=== PATIENT | male | born 1955 | race Caucasian/White ===

== ENCOUNTER → 2016-03-25 | Outpatient (CLI) | payer MEDICARE | END | disposition home or self-care (01) | LOC: YCHH 18:22 | PROVIDERS: ATTEND Family Medicine | DX: E29.1 Testicular hypofunction (principal) ==

== ENCOUNTER → 2016-05-14 | Outpatient (CLI) | payer MEDICARE | LOC: GMAM 16:36 | PROVIDERS: ATTEND Family Medicine | DX: I10 Essential (primary) hypertension (principal) ==

== ENCOUNTER → 2016-06-17 | Outpatient (CLI) | payer MEDICARE | END | disposition home or self-care (01) | LOC: YCHH 14:08 | PROVIDERS: ATTEND Family Medicine | DX: D64.9 Anemia, unspecified (principal) ==

== ENCOUNTER → 2016-10-14 | Outpatient (CLI) | payer MEDICARE | END | disposition home or self-care (01) | LOC: YCHH 11:25 | PROVIDERS: ATTEND Family Medicine | DX: E34.50 Androgen insensitivity syndrome, unspecified (principal) ==

== ENCOUNTER → 2016-11-13 | Outpatient (CLI) | payer MEDICARE | LOC: GMAM 15:03 | PROVIDERS: ATTEND Family Medicine | DX: E29.1 Testicular hypofunction (principal); Z12.5 Encounter for screening for malignant neoplasm of prostate | CPT/HCPCS: 84403; G0103 ==

== ENCOUNTER 2017-03-03 08:00 | Day surgery (SDC) | payer MEDICARE ==
[~2017-03-03 08:00] MED LIST: PROPARACAINE 0.5% OPHTH SOL 15 ML BTTL ONE; TROP 1%/CYCLOPEN 1%/PHENYL 2% DROPS ONE
[2017-03-03] MEDS ORDERED: MIDAZOLAM INJ 2 MG/2 ML VIAL ONE (10:00)
[2017-03-03] MEDS: TOBRAMYCIN SULF 0.3 % OPHT SOL 1 DROP RIGHT_EYE ONE ×2 (10:28→11:29)
[2017-03-03] MEDS ORDERED: LEVALBUTEROL NEBS 1.25 MG/3 ML VIAL NEB ONE (10:50)
[2017-03-03] MEDS ORDERED: PROPARACAINE 0.5% OPHTH SOL 15 ML BTTL RIGHT_EYE ONE (11:16)
[2017-03-03] MEDS ORDERED: LIDOCAINE 1% PF 2 ML AMP INJ ONE (11:29)
[2017-03-03] MEDS ORDERED: DEXAMETHASONE 0.1% OPHTH SOL 1 DROP RIGHT_EYE ONE ×2 (11:29→11:35)
[2017-03-03] MEDS ORDERED: BRIMONIDINE 0.2% OPHTH DROPS RIGHT_EYE ONE ×2 (11:30→11:35)
[2017-03-03] MEDS ORDERED: TOBRAMYCIN SULF 0.3 % OPHT SOL 1 DROP RIGHT_EYE ONE (11:35)
[2017-03-04 10:00] VITALS: BP 124/78; TEMP 98.9; O2SAT 93
== END 2017-03-03 12:15 | disposition home or self-care (01) ==
LOC: AMB 08:00
PROVIDERS: ATTEND Ophthalmology
DX: H25.11 Age-related nuclear cataract, right eye (principal); I10 Essential (primary) hypertension; E11.36 Type 2 diabetes mellitus with diabetic cataract; I25.10 Atherosclerotic heart disease of native coronary artery without angina pectoris; E66.9 Obesity, unspecified; J44.9 Chronic obstructive pulmonary disease, unspecified; Z87.891 Personal history of nicotine dependence; Z88.8 Allergy status to other drugs, medicaments and biological substances; Z79.82 Long term (current) use of aspirin; Z79.4 Long term (current) use of insulin; Z79.899 Other long term (current) drug therapy
CPT/HCPCS: 00142; 36416; 66984; 82948; 94640; J2250; J7614

== ENCOUNTER → 2017-04-30 | Outpatient (CLI) | payer MEDICARE ==
--- NOTE | 2017-04-30 16:03 | US ---
EXAM DESCRIPTION: Venous,Lower Extremity LT: ULTRASOUND. CLINICAL HISTORY: PAIN IN LT LEG COMPARISON: None Available. TECHNIQUE: Two -dimensional and doppler sonographic evaluation of the deep venous system of the left lower extremity. FINDINGS: Doppler evaluation shows normal color flow and normal phasicity and augmentation of the left common femoral vein, femoral vein, popliteal vein, greater saphenous vein, peroneal, and posterior tibial vein. The left lower extremity deep veins showed normal occlusion with transducer pressure. Two-dimensional survey showed no echogenic thrombus within these veins. IMPRESSION: 1. Duplex ultrasound evaluation of the left lower extremity deep venous system showing no evidence of thrombosis or embolism. Electronically signed by: Michael Rice MD 04/30/2017 4:02 PM CDT
== END ==
LOC: US 14:37
PROVIDERS: ATTEND Nurse Practitioner Family
DX: M79.662 Pain in left lower leg (principal)

== ENCOUNTER → 2017-07-21 | Outpatient (CLI) | payer MEDICARE | LOC: YCHH 09:01 | PROVIDERS: ATTEND Family Medicine | DX: E11.40 Type 2 diabetes mellitus with diabetic neuropathy, unspecified (principal); E34.50 Androgen insensitivity syndrome, unspecified; D64.9 Anemia, unspecified; E78.5 Hyperlipidemia, unspecified; N18.6 End stage renal disease; J44.9 Chronic obstructive pulmonary disease, unspecified ==

== ENCOUNTER → 2017-11-10 | Outpatient (CLI) | payer MEDICARE | LOC: YCHH 13:06 | PROVIDERS: ATTEND Family Medicine | DX: D64.9 Anemia, unspecified (principal) ==

== ENCOUNTER → 2018-02-16 | Outpatient (CLI) | payer MEDICARE | LOC: YCHH 12:51 | PROVIDERS: ATTEND Family Medicine | DX: E34.50 Androgen insensitivity syndrome, unspecified (principal) ==

== ENCOUNTER → 2018-03-25 | Outpatient (CLI) | payer MEDICARE ==
--- NOTE | 2018-03-26 17:40 | CT ---
Procedure: CT LUNG SCREENING Exam Date: 03/25/2018. Ordering Provider: Gutierrez Singh Clinical Indication: HX OF TOBACCO ABUSE This patient meets eligibility criteria for low-dose CT lung cancer screening. Comparison: Chest CT scan without contrast 01/06/2015. Technique: Using a multislice scanner, sequential helical axial imaging was obtained in the thorax, 2.5 mm thickness, 2.5 mm separation, from the level of the thoracic inlet through the lung bases without IV contrast. A low dose protocol was utilized: CTDI: 2.93 mGy. 120. kVp. 45 mA. DLP 108.55 mGy centimeters. 2D sagittal and coronal reconstructed images, 6.0 mm thickness, were obtained. This exam was performed according to our departmental dose optimization program which includes use of automated exposure control, adjustment of the mA and/or kV according to patient size and/or use of iterative reconstruction technique. Nodule measurements under 10 mm are given as mean value of 3 axes diameters. FINDINGS: Lungs and large airways: Minimal bilateral parenchymal density with small blebs in a centrilobular distribution more prevalent in the upper lung serrano than the lower lung serrano. Minimal thickening of the bilateral fissures. Minimal scarring in the inferior right middle lobe. Pleura and space: Small focal calcification in the anterior lateral left pleura at the midlung level. Bilateral thickening posteriorly more right than left. 11 mm groundglass nodule central right lower lobe, not seen on the prior study, axial series 2, image 85. No calcification. No consolidation or solid nodules were seen.. Mediastinum and nahid: evaluation limited by low dose technique and lack of IV contrast. Numerous lymph nodes are seen in the mid and upper mediastinum with no significant changes the prior study. Heart and great vessels: Atherosclerotic calcifications in the aortic arch with stent in the proximal left subclavian artery. Atherosclerotic calcifications in the coronary arteries and aorta. Chest wall, lower neck, axillae: Evaluation also limited by same factors as described above. Minimal edema in the chest wall and distention of some of the chest wall veins. No enlarged lymph nodes. Upper abdomen: Ascites. No free air. Limited visualization due to the ascites. Osseous structures: Evaluation limited by low dose MIP technique. Minimal spondylosis. Minimal arthrosis in the bilateral sternoclavicular joints. IMPRESSION: 1. 11 mm groundglass nodule central right lower not seen on the prior study. No abnormal solid or semisolid nodules. [facility] Best Practice recommendations:. Please see below for Lung RADS category and FOLLOW-UP.* *Lung RADS category CATEGORY 2S - Nodules with a very low likelihood (less than 1%) of becoming a clinically active cancer due to size or lack of growth. Nodules: Solid or part solid nodule(s) less than 6mm, new solid nodule less than 4mm. Ground glass nodule(s) less than 20mm or unchanged or slow growing ground glass nodule 20mm or greater. Cat 3 or 4 nodule unchanged for 3 or more months. FOLLOW-UP: Continue annual screening with a Low Dose Chest CT in 12 months for re-evaluation. 2. Lung RADS Modifier S - Clinically Significant or Potentially Clinically Significant Findings (non lung cancer). Abdominal ascites. Chest wall anasarca. Correlate with clinical history and consider abdominal ultrasound. Electronically signed by: Michael Rice MD 03/26/2018 5:38 PM [facility]
== END ==
LOC: CT 13:00
PROVIDERS: ATTEND Family Medicine
DX: Z87.891 Personal history of nicotine dependence (principal); R91.1 Solitary pulmonary nodule

== ENCOUNTER → 2018-03-30 | Outpatient (CLI) | payer MEDICARE | LOC: YCHH 08:35 | PROVIDERS: ATTEND Family Medicine | DX: E11.40 Type 2 diabetes mellitus with diabetic neuropathy, unspecified (principal); N18.6 End stage renal disease; D64.9 Anemia, unspecified; E78.5 Hyperlipidemia, unspecified; I10 Essential (primary) hypertension; N40.0 Benign prostatic hyperplasia without lower urinary tract symptoms ==

== ENCOUNTER → 2018-04-12 | Outpatient (CLI) | payer MEDICARE | LOC: SL 20:23 | PROVIDERS: ATTEND Internal Medicine | DX: G47.33 Obstructive sleep apnea (adult) (pediatric) (principal); J44.9 Chronic obstructive pulmonary disease, unspecified ==

== ENCOUNTER → 2018-09-28 | Outpatient (CLI) | payer MEDICARE | LOC: YCHH 08:20 | PROVIDERS: ATTEND Family Medicine | DX: E11.40 Type 2 diabetes mellitus with diabetic neuropathy, unspecified (principal); N18.6 End stage renal disease; D64.9 Anemia, unspecified; E34.50 Androgen insensitivity syndrome, unspecified; E78.5 Hyperlipidemia, unspecified ==

== ENCOUNTER → 2018-10-14 | Outpatient (CLI) | payer MEDICARE | LOC: ECHO 13:08 | PROVIDERS: ATTEND Family Medicine | DX: I48.91 Unspecified atrial fibrillation (principal) ==

== ENCOUNTER 2018-10-22 07:23 | Emergency (ER) | payer MEDICARE ==
[2018-10-22] MEDS ORDERED: ACETAMINOPHEN 500 MG TAB PO ONE (07:34)
[2018-10-22] MEDS ORDERED: SODIUM CHLORIDE 0.9% (FLUSH) 10 ML SYG IV PRN (07:34)
--- NOTE | 2018-10-22 07:40 | ED.PDOC ---
History of Present Illness - General Chief Complaint: Neuro Symptoms/Deficits Stated Complaint: Hypotensive, lightheaded, AMS Time Seen by Provider: 10/22/18 07:33 Source: patient, family - History of Present Illness Initial Comments: Patient is a 63M with PMH significant for DM, ESRD on TRS HD, prior stroke on eliquis, atrial fibrillation, COPD, CHF presents to the ED from dialysis center for generalized weakness, altered mental status. Patient's states that he woke this morning "Feelin bad." He complained of worsening chronic back pain, lack of appetite. Per report from dialysis center he had difficulty walking due to generalized weakness. He received one hour of dialysis which was terminated due to hypotension it is unclear what his blood pressure was at HD center but it improved at the time of EMS arrival. Upon arrival the patient's states that he is more sluggish to respond than usual and that he is more confused than baseline. He is noted to have fever to 100.4. He did take his midodrine this morning. No other complaints at this time. Allergies/Adverse Reactions: Allergies Codeine Allergy (Unknown, Verified 10/22/18 07:54) Rash Hydrocodone Allergy (Verified 10/22/18 07:54) Rash Home Medications: Ambulatory Orders Albuterol Sulfate Nebs [Proventil Nebs] 2.5 mg INH QID #0 vial 09/11/12 Amlodipine Besylate 10 mg PO HS #0 09/11/12 Ascorbic Acid [Vitamin C] 100 mg PO DAILY #0 09/11/12 Aspirin [Baby Aspirin] 81 mg PO DAILY #0 09/11/12 Cholecalciferol [Vitamin D3] 600 unit PO DAILY #0 09/11/12 Citalopram Hydrobromide [Celexa] 20 mg PO DAILY #0 09/11/12 Coenzyme Q10 (Ubidecarenone) [Co Q-10] 100 mg PO DAILY #0 09/11/12 Calcium Citrate [Ward-Citrate] 150 mg PO BID 05/17/15 Insulin Aspart [Novolog] 100 unit SC AC 05/17/15 Insulin Glargine [Lantus Solostar] 32 unit SC BEDTIME 05/17/15 Losartan Potassium 50 mg PO BID 05/17/15 Methadone HCl [Methadone] 10 mg PO TID PRN 05/17/15 Leon-3 Fatty Acids [Fish Oil 1000 mg] 1 cap PO DAILY 05/17/15 Pravastatin Sodium 40 mg PO BEDTIME 05/17/15 Vit W/ Ferrous Fumara [Pnv Folic Acid + Iron Mul] 1 tab PO DAILY #30 tab 05/20/15 Furosemide Tab [Lasix Tab] 80 mg PO AM 06/27/15 Furosemide [Lasix] 40 mg PO .QEVENING 06/27/15 hydrALAZINE HCl [(None)] 50 mg PO TID 06/27/15 Review of Systems - Review of Systems Constitutional: States: no symptoms reported, weakness EENTM: States: no symptoms reported Respiratory: States: no symptoms reported Cardiology: Denies: chest pain Gastrointestinal/Abdominal: Denies: abdominal pain, diarrhea, nausea, vomiting Genitourinary: States: no symptoms reported - anuric Musculoskeletal: Denies: joint pain, joint swelling Skin: Denies: rash Neurological: States: weakness - generalized. Denies: headache, numbness Endocrine: States: no symptoms reported Hematologic/Lymphatic: States: no symptoms reported All other Systems: No Change from Baseline Past Medical History (General) - Patient Medical History Hx Seizures: No Hx Stroke: Yes - 2013 Hx Asthma: No Hx of COPD: Yes Hx Cardiac Disorders: Yes - pulm edema, CAD, PVD stints in legs and L arm Hx Congestive Heart Failure: Yes Hx Pacemaker: No Hx Hypertension: Yes Hx Diabetes: Yes Hx MRSA: No - Vaccination History Hx Influenza Vaccination: Yes - 2014 Hx Pneumococcal Vaccination: Yes - 2014 - Social History Hx Tobacco Use: Yes - Quit 08/2012 Hx Alcohol Use: No Hx Substance Use: No Hx Physical Abuse: No Hx Emotional Abuse: No Family Medical History - Family History Father Family History: Unknown Living Status: Hx Cardiac Disease: Yes Physical Exam - Physical Exam General Appearance: Lethargic, Obese, Well Developed, Well Nourished Eye Exam: bilateral normal Ears, Nose, Throat: hearing grossly normal Neck: non-tender, full range of motion Respiratory: accessory muscle use, wheezing - occasional, scattered Cardiovascular/Chest: regular rate, rhythm, no edema, no murmur Gastrointestinal/Abdominal: non tender, distended Extremity: normal range of motion, non-tender, no pedal edema Neurologic: general office assistant II-XII nml as tested, motor weakness - drift noted to LLE 4/5 Skin Exam: normal color, warm/dry Progress - Progress Progress: 10/22/18 08:09 Discussed with radiology, patient has appearance of subacute right frontal lobe infarct. 10/22/18 08:27 Patient reassessed, he is awake/alert but still sluggish to respond. States that he has been having some left leg weakness for "a while" but unable to quantify. 10/22/18 09:[address] Diaz, accepted for transfer to [facility] for sepsis, subacute stroke 10/22/18 09:45 Patient reassessed per sepsis guidelines. Heart and lungs are clear, capillary refill is < 2 seconds. 2+ peripheral pulses. Skin is warm and dry. Moderate persistent hypotension, will add levophed. Vital Signs - 24 hr 10/22/18 10/22/18 10/22/18 07:25 07:34 08:00 Temperature 100.4 F H 100.4 F H Pulse Rate [R 101 H 101 H 97 H finger] Respiratory 20 20 20 Rate Blood Pressure 92/66 85/59 [R brachial] O2 Sat by Pulse 91 L 96 Oximetry 10/22/18 10/22/18 10/22/18 08:46 09:00 10:00 Temperature Pulse Rate [R 94 H 89 finger] Respiratory 20 20 Rate Blood Pressure 86/53 83/49 [R brachial] O2 Sat by Pulse 94 L 92 L 91 L Oximetry 10/22/18 10:35 Temperature 99.5 F Pulse Rate [R 89 finger] Respiratory 20 Rate Blood Pressure 83/60 [R brachial] O2 Sat by Pulse 88 L Oximetry MDM Patient presents to the ED from HD with generalized weakness, low blood pressure. Workup as below. The patient had normal blood pressure at the time of EMS arrival but is noted to have SBP in 80s while in the ED. He responded temporarily to 500cc fluid bolus, did not get 30cc/kg fluid bolus due to ESRD and concern for volume overload. He was started on low-dose levophed for blood pressure support. He was febrile on arrival with mild leukocytosis, normal lactic acid. Blood cultures were sent and he was started on empiric antibiotics. He was also found to have subacute infarct. Will transfer to [facility] for higher level of care. - Results/Orders Results/Orders: 10/22/18 07:34 Telemetry .ONCE EKG Stat Pulse Ox Stat Pulse Oximetry Assessment DAILY 10/22/18 08:26 BLOOD CULTURE Stat Laboratory Results - last 24 hr 10/22/18 10/22/18 10/22/18 08:14 08:26 08:26 WBC 11.7 H RBC 3.65 L Hgb 11.0 L Hct 35.1 L MCV 96.1 H MCH 30.1 MCHC 31.3 L RDW 18.0 H Plt Count 206 MPV 8.4 Absolute Neuts (auto) 11.40 H Absolute Lymphs (auto) 0.10 L Absolute Monos (auto) 0.20 Absolute Eos (auto) 0.00 Absolute Basos (auto) 0.00 Neutrophils % 97.0 H Lymphocytes % 0.7 L Monocytes % 2.0 Eosinophils % 0.0 L Basophils % 0.3 PT INR PTT (SP) pCO2 44 pO2 184 H* HCO3 30.9 ABG pH 7.460 H ABG O2 Saturation 99.8 H ABG Base Excess 6.8 ABG Deoxyhemoglobin 0.2 Oxyhemoglobin % 96.9 Carboxyhemoglobin % 0.7 Methemoglobin % Sat 2.2 H Calc Total Hemoglobin 10.3 L Sodium 140 Potassium 3.7 Chloride 93 L Carbon Dioxide 30 Anion Gap 20.7 H BUN 47 H Creatinine 4.18 H BUN/Creatinine Ratio 11.2 Random Glucose 75 Serum Osmolality 290.4 Lactic Acid Calcium 8.3 L Total Bilirubin 0.9 AST 24 ALT 17 Alkaline Phosphatase 68 Creatine Kinase 89 CK-MB (CK-2) 8.1 H* CK-MB (CK-2) % Not Reportable Troponin I 0.11 H* Serum Total Protein 8.0 Albumin 3.3 Globulin 4.7 H Albumin/Globulin Ratio 0.7 L 10/22/18 10/22/18 08:26 08:26 WBC RBC Hgb Hct MCV MCH MCHC RDW Plt Count MPV Absolute Neuts (auto) Absolute Lymphs (auto) Absolute Monos (auto) Absolute Eos (auto) Absolute Basos (auto) Neutrophils % Lymphocytes % Monocytes % Eosinophils % Basophils % PT 12.4 H INR 1.24 H PTT (SP) 28.9 pCO2 pO2 HCO3 ABG pH ABG O2 Saturation ABG Base Excess ABG Deoxyhemoglobin Oxyhemoglobin % Carboxyhemoglobin % Methemoglobin % Sat Calc Total Hemoglobin Sodium Potassium Chloride Carbon Dioxide Anion Gap BUN Creatinine BUN/Creatinine Ratio Random Glucose Serum Osmolality Lactic Acid 1.4 Calcium Total Bilirubin AST ALT Alkaline Phosphatase Creatine Kinase CK-MB (CK-2) CK-MB (CK-2) % Troponin I Serum Total Protein Albumin Globulin Albumin/Globulin Ratio - EKG/XRAY/CT EKG: Sinus, RBBB, nonspecific ST T wave Chg Comments: 08 sinus rhythm, RBBB, non-specific twave changes, no STEMI Departure - Departure Clinical Impression: End stage renal disease Sepsis Qualifiers: Sepsis type: sepsis due to unspecified organism Qualified Code(s): A41.9 - Sepsis, unspecified organism Stroke (cerebrum) Qualifiers: CVA mechanism: thrombosis Precerebral and cerebral artery: unspecified precerebral artery Qualified Code(s): I63.00 - Cerebral infarction due to thrombosis of unspecified precerebral artery Time of Disposition: :10 Disposition: Transfer to Hospital Condition: Fair Departure Forms: ED Discharge - Pt. Copy, Patient Portal Self Enrollment Referrals: Rishi Pickering MD [Primary Care Provider] - 1-2 Weeks Home Medications: Ambulatory Orders Albuterol Sulfate Nebs [Proventil Nebs] 2.5 mg INH QID #0 vial 09/11/12 Amlodipine Besylate 10 mg PO HS #0 09/11/12 Ascorbic Acid [Vitamin C] 100 mg PO DAILY #0 09/11/12 Aspirin [Baby Aspirin] 81 mg PO DAILY #0 09/11/12 Cholecalciferol [Vitamin D3] 600 unit PO DAILY #0 09/11/12 Citalopram Hydrobromide [Celexa] 20 mg PO DAILY #0 09/11/12 Coenzyme Q10 (Ubidecarenone) [Co Q-10] 100 mg PO DAILY #0 09/11/12 Calcium Citrate [Ward-Citrate] 150 mg PO BID 05/17/15 Insulin Aspart [Novolog] 100 unit SC AC 05/17/15 Insulin Glargine [Lantus Solostar] 32 unit SC BEDTIME 05/17/15 Losartan Potassium 50 mg PO BID 05/17/15 Methadone HCl [Methadone] 10 mg PO TID PRN 05/17/15 Leon-3 Fatty Acids [Fish Oil 1000 mg] 1 cap PO DAILY 05/17/15 Pravastatin Sodium 40 mg PO BEDTIME 05/17/15 Vit W/ Ferrous Fumara [Pnv Folic Acid + Iron Mul] 1 tab PO DAILY #30 tab 05/20/15 Furosemide Tab [Lasix Tab] 80 mg PO AM 06/27/15 Furosemide [Lasix] 40 mg PO .QEVENING 06/27/15 hydrALAZINE HCl [(None)] 50 mg PO TID 06/27/15 Comments: Dae Larose MD Emergency Medicine Physician Number [id number] Critical Care Note - Critical Care Note Total Time (mins): 35 Comments: 35 minutes of critical care time including chart review, ordering/interpretation of labs and imaging, management of sepsis, management of shock Transfer to Outside Facility - Transfer Information Accepting Provider:: Emily Accepting Facility: [facility] Reason for Transfer: required specialist not available
--- NOTE | 2018-10-22 08:11 | CT ---
PROVIDED CLINICAL HISTORY/REASON FOR EXAM: altered mental TECHNIQUE: Volumetric CT data of the brain was obtained without intravenous contrast. This exam was performed according to our departmental dose-optimization program, which includes automated exposure control, adjustment of the mA and/or kV according to patient size and/or use of iterative reconstruction technique. COMPARISON: February 19, 2013 FINDINGS: The ventricles and sulci are normal, without hydrocephalus or significant atrophy. Septum pellucidum and third ventricle are midline. Age-indeterminate, but interval right frontal lobe infarct. No associated hemorrhage or mass effect. Infarcted area measures approximately 5.3 x 2.4 x 3.2 cm. No acute hemorrhage is present. No mass or mass effect is present. The calvaria and soft tissues are unremarkable. The visualized paranasal sinuses are unremarkable. IMPRESSION: Age-indeterminate, but interval right frontal lobe infarct without hemorrhage or mass effect. Recommend MRI for further evaluation. Findings discussed with Dr. Larose at 8:08 AM 10/22/2018 Electronically signed by: Blaise Crum MD 10/22/2018 8:09 AM CDT
[2018-10-22] MEDS ORDERED: SODIUM CHLORIDE 0.9% 500ML 500 ML IVS ONE (08:22)
--- NOTE | 2018-10-22 08:39 | RAD ---
EXAM DESCRIPTION: Chest,1 View CLINICAL HISTORY: sepsis COMPARISON: May 20, 2015 IMPRESSION: Single AP portable upright view of the chest shows enlargement of cardiac silhouette without pulmonary vascular congestion increased from previous exam which could represent pericardial effusion versus worsening cardiomegaly. Lungs are normally aerated without acute appearing infiltrate or consolidation. No pleural effusion or pneumothorax. Electronically signed by: Mehdi Ruiz MD 10/22/2018 8:37 AM CDT
[2018-10-22] MEDS ORDERED: VANCOMYCIN HCL INJ 1,000 MG in SODIUM CHLORIDE 0.9% 250ML 250 ML IVPB ONE (08:53)
[2018-10-22] MEDS ORDERED: CEFEPIME 1 GM in SODIUM CHLORIDE 0.9% 50ML 50 ML IVPB ONE (08:54)
[2018-10-22] MEDS ORDERED: CEFEPIME 2 GM VIAL ONE (09:00)
[2018-10-22] MEDS ORDERED: SODIUM CHLORIDE 0.9% 50ML 50 ML ONE (09:00)
[2018-10-22] MEDS ORDERED: VANCOMYCIN HCL INJ 1,000 MG VIAL IVPB ONE (09:41)
[2018-10-22] MEDS ORDERED: SODIUM CHLORIDE 0.9% 250ML 250 ML ONE (09:41)
[2018-10-22] MEDS ORDERED: NOREPINEPHRINE BITARTRATE 4 MG/4 ML VIAL IVPB ONE (10:17)
[2018-10-22] MEDS ORDERED: DEXTROSE 5% 250ML 250 ML ONE (10:18)
[2018-10-22] MEDS ORDERED: NOREPINEPHRINE BITARTRATE 4 MG in DEXTROSE 5% 250ML 250 ML IVPB SCH (10:30)
[2018-10-22 10:47] VITALS: BP 83/60; TEMP 99.5; O2SAT 88
== END 2018-10-22 10:35 | disposition short-term general hospital (02) ==
LOC: ER 07:23
DX: A41.9 Sepsis, unspecified organism (principal); I63.00 Cerebral infarction due to thrombosis of unspecified precerebral artery; N18.6 End stage renal disease; I45.10 Unspecified right bundle-branch block; E11.22 Type 2 diabetes mellitus with diabetic chronic kidney disease; R41.82 Altered mental status, unspecified; I50.9 Heart failure, unspecified; I13.2 Hypertensive heart and chronic kidney disease with heart failure and with stage 5 chronic kidney disease, or end stage renal disease; E66.9 Obesity, unspecified; J44.9 Chronic obstructive pulmonary disease, unspecified; I25.10 Atherosclerotic heart disease of native coronary artery without angina pectoris; I48.91 Unspecified atrial fibrillation; Z79.899 Other long term (current) drug therapy; Z79.4 Long term (current) use of insulin; Z86.73 Personal history of transient ischemic attack (TIA), and cerebral infarction without residual deficits; Z79.82 Long term (current) use of aspirin; Z88.5 Allergy status to narcotic agent; Z99.2 Dependence on renal dialysis; Z79.01 Long term (current) use of anticoagulants
CPT/HCPCS: 36600; 70450; 71045; 80053; 82550; 82553; 82803; 82805; 83605; 84484; 85025; 85610; 85730; 87040; 93005; 94760; A4216; J0692; J3370; J7040; J7050; J7060

== ENCOUNTER 2018-11-09 09:08 | Emergency (ER) | payer MEDICARE ==
[2018-11-09] MEDS ORDERED: LIDOCAINE 1% W/ EPINEPHRINE 20 ML VIAL INJ ONE (09:16)
[2018-11-09] MEDS ORDERED: TETANUS,DIPHTHERIA,PERTUSSIS 1 EA SYG IM ONE (09:40)
--- NOTE | 2018-11-09 09:43 | ED.PDOC ---
History of Present Illness - General Chief Complaint: Laceration Stated Complaint: L calf laceration Time Seen by Provider: 11/09/18 09:12 Source: patient - History of Present Illness Initial Comments: Pt w/ h/o ESRD on dialysis, CHF, a fib on eliquis presenting with a L calf laceration. Reports he was getting into his wheel chair when he cut the side of his leg. Was unable to stop bleeding with direct pressure and so came to the ED. Unknown last tetanus. Denies falling or any other injury. He has dialysis this afternoon. Allergies/Adverse Reactions: Allergies Codeine Allergy (Unknown, Verified 11/09/18 09:45) Rash Hydrocodone Allergy (Verified 11/09/18 09:45) Rash Home Medications: Ambulatory Orders Albuterol Sulfate Nebs [Proventil Nebs] 2.5 mg INH QID #0 vial 09/11/12 Amlodipine Besylate 10 mg PO HS #0 09/11/12 Ascorbic Acid [Vitamin C] 100 mg PO DAILY #0 09/11/12 Aspirin [Baby Aspirin] 81 mg PO DAILY #0 09/11/12 Cholecalciferol [Vitamin D3] 600 unit PO DAILY #0 09/11/12 Citalopram Hydrobromide [Celexa] 20 mg PO DAILY #0 09/11/12 Coenzyme Q10 (Ubidecarenone) [Co Q-10] 100 mg PO DAILY #0 09/11/12 Calcium Citrate [Ward-Citrate] 150 mg PO BID 05/17/15 Insulin Aspart [Novolog] 100 unit SC AC 05/17/15 Insulin Glargine [Lantus Solostar] 32 unit SC BEDTIME 05/17/15 Losartan Potassium 50 mg PO BID 05/17/15 Methadone HCl [Methadone] 10 mg PO TID PRN 05/17/15 [place]-3 Fatty Acids [Fish Oil 1000 mg] 1 cap PO DAILY 05/17/15 Pravastatin Sodium 40 mg PO BEDTIME 05/17/15 Vit W/ Ferrous Fumara [Pnv Folic Acid + Iron Mul] 1 tab PO DAILY #30 tab 05/20/15 Furosemide Tab [Lasix Tab] 80 mg PO AM 06/27/15 Furosemide [Lasix] 40 mg PO .QEVENING 06/27/15 hydrALAZINE HCl [(None)] 50 mg PO TID 06/27/15 Cephalexin Monohydrate [Keflex] 500 mg PO BID 7 Days #14 cap 11/09/18 Review of Systems - Review of Systems Constitutional: States: no symptoms reported EENTM: States: no symptoms reported Respiratory: States: no symptoms reported Cardiology: States: no symptoms reported Gastrointestinal/Abdominal: States: no symptoms reported Genitourinary: States: no symptoms reported Musculoskeletal: States: no symptoms reported Skin: States: other - laceration Neurological: States: no symptoms reported Endocrine: States: no symptoms reported Hematologic/Lymphatic: States: no symptoms reported All other Systems: Reviewed and Negative Past Medical History (General) - Patient Medical History Hx Seizures: No Hx Stroke: Yes - 2013 Hx Asthma: No Hx of COPD: Yes Hx Cardiac Disorders: Yes - pulm edema, CAD, PVD stints in legs and L arm Hx Congestive Heart Failure: Yes Hx Pacemaker: No Hx Hypertension: Yes Hx Diabetes: Yes Hx Renal Disease: Yes - CKF Hx Cancer: No Hx MRSA: No - Vaccination History Hx Tetanus, Diphtheria Vaccination: Yes Hx Influenza Vaccination: Yes - 2014 Hx Pneumococcal Vaccination: Yes - 2014 - Social History Hx Tobacco Use: Yes - Quit 08/2012 Hx Alcohol Use: No Hx Substance Use: No Hx Depression: Yes Hx Physical Abuse: No Hx Emotional Abuse: No - Female History Patient : No Family Medical History - Family History Father Family History: Unknown Living Status: Hx Cardiac Disease: Yes Physical Exam - Physical Exam General Appearance: Alert, Comfortable Eye Exam: left normal Ears, Nose, Throat: hearing grossly normal, normal ENT inspection Neck: non-tender, full range of motion Respiratory: chest non-tender, lungs clear Cardiovascular/Chest: normal peripheral pulses, other - 2+ LE edema, chronic venous stasis Gastrointestinal/Abdominal: non tender, soft Rectal Exam: deferred Back Exam: normal inspection, no CVA tenderness Extremity: normal range of motion, non-tender Neurologic: no motor/sensory deficits, alert, normal mood/affect Skin Exam: other - 7cm laceration of L lateral calf, active venous ooze Progress - Progress Progress: 11/09/18 09:45 MDM: Patient presenting with 7cm laceration of L leg. on eliquis. He has chronic venous stasis/lymphedema. Will repair, update tetanus and place on antibiotic prophylaxis given his comorbidities. Jett Gage #[id number] 11/09/18 10:08 Procedures - Laceration/Wound Repair Left Lower Lateral Proximal Wound's Depth, Shape: linear, flap Wound Explored: no foreign body removed Irrigated w/ Saline (cc's): 100 Anesthesia: Lidocaine w/ Epi Volume Anesthetic (cc's): 5 Wound Debrided: minimal Wound Repaired With: sutures Suture Size/Type: 3:0, nylon Number of Sutures: 9 Layer Closure?: No Sterile Dressing Applied?: Yes Progress: 2 vertical mattress sutures were placed to approximate the wound followed by 5 simple interrupted sutures. Departure - Departure Clinical Impression: Laceration of leg Qualifiers: Encounter type: initial encounter Laterality: left Qualified Code(s): S81.812A - Laceration without foreign body, left lower leg, initial encounter Disposition: Discharge to Home or Self Care Condition: Good Departure Forms: ED Discharge - Pt. Copy, Patient Portal Self Enrollment Instructions: DI for Laceration Repair Referrals: Rishi Pickering MD [Primary Care Provider] - 1-2 Weeks Prescriptions: Cephalexin Monohydrate [Keflex] 500 mg PO BID 7 Days #14 cap Home Medications: Ambulatory Orders Albuterol Sulfate Nebs [Proventil Nebs] 2.5 mg INH QID #0 vial 09/11/12 Amlodipine Besylate 10 mg PO HS #0 09/11/12 Ascorbic Acid [Vitamin C] 100 mg PO DAILY #0 09/11/12 Aspirin [Baby Aspirin] 81 mg PO DAILY #0 09/11/12 Cholecalciferol [Vitamin D3] 600 unit PO DAILY #0 09/11/12 Citalopram Hydrobromide [Celexa] 20 mg PO DAILY #0 09/11/12 Coenzyme Q10 (Ubidecarenone) [Co Q-10] 100 mg PO DAILY #0 09/11/12 Calcium Citrate [Ward-Citrate] 150 mg PO BID 05/17/15 Insulin Aspart [Novolog] 100 unit SC AC 05/17/15 Insulin Glargine [Lantus Solostar] 32 unit SC BEDTIME 05/17/15 Losartan Potassium 50 mg PO BID 05/17/15 Methadone HCl [Methadone] 10 mg PO TID PRN 05/17/15 [place]-3 Fatty Acids [Fish Oil 1000 mg] 1 cap PO DAILY 05/17/15 Pravastatin Sodium 40 mg PO BEDTIME 05/17/15 Vit W/ Ferrous Fumara [Pnv Folic Acid + Iron Mul] 1 tab PO DAILY #30 tab 05/20/15 Furosemide Tab [Lasix Tab] 80 mg PO AM 06/27/15 Furosemide [Lasix] 40 mg PO .QEVENING 06/27/15 hydrALAZINE HCl [(None)] 50 mg PO TID 06/27/15 Cephalexin Monohydrate [Keflex] 500 mg PO BID 7 Days #14 cap 11/09/18 Additional Instructions: Please return to the ER or follow up with your family doctor in 2 weeks to have the sutures removed. Please keep your legs elevated while sitting. If you develop a fever or worsening redness of your legs please return to the ER.
[2018-11-09 09:49] VITALS: BP 109/71; TEMP 97.5; O2SAT 100
== END 2018-11-09 10:52 | disposition home or self-care (01) ==
LOC: ER 09:08
DX: S81.812A Laceration without foreign body, left lower leg, initial encounter (principal); F32.9 Major depressive disorder, single episode, unspecified; N18.6 End stage renal disease; E11.22 Type 2 diabetes mellitus with diabetic chronic kidney disease; I13.2 Hypertensive heart and chronic kidney disease with heart failure and with stage 5 chronic kidney disease, or end stage renal disease; I50.9 Heart failure, unspecified; I25.10 Atherosclerotic heart disease of native coronary artery without angina pectoris; J44.9 Chronic obstructive pulmonary disease, unspecified; Z86.73 Personal history of transient ischemic attack (TIA), and cerebral infarction without residual deficits; Z87.891 Personal history of nicotine dependence; Z79.899 Other long term (current) drug therapy; Z79.4 Long term (current) use of insulin; Z79.82 Long term (current) use of aspirin; Z88.5 Allergy status to narcotic agent; Z99.2 Dependence on renal dialysis; X58.XXXA Exposure to other specified factors, initial encounter; Y92.9 Unspecified place or not applicable

== ENCOUNTER 2018-12-03 00:58 | Emergency (ER) | payer MEDICARE ==
--- NOTE | 2018-12-03 01:12 | ED.PDOC ---
History of Present Illness - General Chief Complaint: Cardiac Respiratory Arrest Stated Complaint: Same Time Seen by Provider: 12/03/18 01:10 Source: RN notes reviewed, Vital Signs reviewed, EMS notes reviewed, EMS Exam Limitations: clinical condition - History of Present Illness Initial Comments: Per EMS, patient's called EMS after she heard a crash in the bathroom and patient was found down on the ground. Per the , about 1 week prior patient was saying he felt like he was going to . Timing/Duration: 1 hour Severity: severe Allergies/Adverse Reactions: Allergies Codeine Allergy (Unknown, Verified 11/09/18 09:45) Rash Hydrocodone Allergy (Verified 11/09/18 09:45) Rash Home Medications: Ambulatory Orders Albuterol Sulfate Nebs [Proventil Nebs] 2.5 mg INH QID #0 vial 09/11/12 Amlodipine Besylate 10 mg PO HS #0 09/11/12 Ascorbic Acid [Vitamin C] 100 mg PO DAILY #0 09/11/12 Aspirin [Baby Aspirin] 81 mg PO DAILY #0 09/11/12 Cholecalciferol [Vitamin D3] 600 unit PO DAILY #0 09/11/12 Citalopram Hydrobromide [Celexa] 20 mg PO DAILY #0 09/11/12 Coenzyme Q10 (Ubidecarenone) [Co Q-10] 100 mg PO DAILY #0 09/11/12 Calcium Citrate [Ward-Citrate] 150 mg PO BID 05/17/15 Insulin Aspart [Novolog] 100 unit SC AC 05/17/15 Insulin Glargine [Lantus Solostar] 32 unit SC BEDTIME 05/17/15 Losartan Potassium 50 mg PO BID 05/17/15 Methadone HCl [Methadone] 10 mg PO TID PRN 05/17/15 Greenwood-3 Fatty Acids [Fish Oil 1000 mg] 1 cap PO DAILY 05/17/15 Pravastatin Sodium 40 mg PO BEDTIME 05/17/15 Vit W/ Ferrous Fumara [Pnv Folic Acid + Iron Mul] 1 tab PO DAILY #30 tab 05/20/15 Furosemide Tab [Lasix Tab] 80 mg PO AM 06/27/15 Furosemide [Lasix] 40 mg PO .QEVENING 06/27/15 hydrALAZINE HCl [(None)] 50 mg PO TID 06/27/15 Cephalexin Monohydrate [Keflex] 500 mg PO BID 7 Days #14 cap 11/09/18 Review of Systems - Review of Systems Unable to Obtain Due To: condition Past Medical History (General) - Patient Medical History Hx Seizures: No Hx Stroke: Yes - 2013 Hx Asthma: No Hx of COPD: Yes Hx Cardiac Disorders: Yes - pulm edema, CAD, PVD stints in legs and L arm Hx Congestive Heart Failure: Yes Hx Pacemaker: No Hx Hypertension: Yes Hx Diabetes: Yes Hx Renal Disease: Yes - CKF Hx Cancer: No Hx MRSA: No - Vaccination History Hx Tetanus, Diphtheria Vaccination: Yes Hx Influenza Vaccination: Yes - 2014 Hx Pneumococcal Vaccination: Yes - 2014 - Social History Hx Tobacco Use: Yes - Quit 08/2012 Hx Alcohol Use: No Hx Substance Use: No Hx Depression: Yes Hx Physical Abuse: No Hx Emotional Abuse: No - Female History Patient : No Family Medical History - Family History Father Family History: Unknown Living Status: Hx Cardiac Disease: Yes Physical Exam - Physical Exam General Appearance: Other - Obese pannus, cirrhotic changes to abdomen Eyes, Ears, Nose, Throat Exam: other - Pupils 6-7 mm, fixed, no reaction to light Respiratory: lungs clear, other - Intubated by EMS Gastrointestinal/Abdominal: distended Extremity: no pedal edema Progress - Progress Progress: 12/03/18 01:13 Per EMS, patient was found down in the bathroom of his house. His initial glucose was 25 and he was given D50. Had about 30 min of CPR en route. Pushed Epi multiple times. Intubated by EMS. On arrival, patient with jojo machine on chest, intubated, pupils fixed and dilated. Patient underwent approximately 5 more minutes of CPR here before he was pronounced . Once the jojo machine was paused twice for rhythm check, it went straight into asystole with no pulse. I spoke to the and explained to her briefly what happened. - EKG/XRAY/CT EKG: Tachy Departure - Departure Clinical Impression: Time of Disposition: 01:15 Disposition: Discharge to Home or Self Care Departure Forms: ED Discharge - Pt. Copy, Patient Portal Self Enrollment Referrals: Rishi Pickering MD [Primary Care Provider] - 1-2 Weeks Home Medications: Ambulatory Orders Albuterol Sulfate Nebs [Proventil Nebs] 2.5 mg INH QID #0 vial 09/11/12 Amlodipine Besylate 10 mg PO HS #0 09/11/12 Ascorbic Acid [Vitamin C] 100 mg PO DAILY #0 09/11/12 Aspirin [Baby Aspirin] 81 mg PO DAILY #0 09/11/12 Cholecalciferol [Vitamin D3] 600 unit PO DAILY #0 09/11/12 Citalopram Hydrobromide [Celexa] 20 mg PO DAILY #0 09/11/12 Coenzyme Q10 (Ubidecarenone) [Co Q-10] 100 mg PO DAILY #0 09/11/12 Calcium Citrate [Ward-Citrate] 150 mg PO BID 05/17/15 Insulin Aspart [Novolog] 100 unit SC AC 05/17/15 Insulin Glargine [Lantus Solostar] 32 unit SC BEDTIME 05/17/15 Losartan Potassium 50 mg PO BID 05/17/15 Methadone HCl [Methadone] 10 mg PO TID PRN 05/17/15 Greenwood-3 Fatty Acids [Fish Oil 1000 mg] 1 cap PO DAILY 05/17/15 Pravastatin Sodium 40 mg PO BEDTIME 05/17/15 Vit W/ Ferrous Fumara [Pnv Folic Acid + Iron Mul] 1 tab PO DAILY #30 tab 05/20/15 Furosemide Tab [Lasix Tab] 80 mg PO AM 06/27/15 Furosemide [Lasix] 40 mg PO .QEVENING 06/27/15 hydrALAZINE HCl [(None)] 50 mg PO TID 06/27/15 Cephalexin Monohydrate [Keflex] 500 mg PO BID 7 Days #14 cap 11/09/18
[2018-12-03 01:44] VITALS: TEMP 97.4; O2SAT 67
== END 2018-12-03 01:05 | disposition expired ==
LOC: ER 00:58
DX: I46.9 Cardiac arrest, cause unspecified (principal); J44.9 Chronic obstructive pulmonary disease, unspecified; I25.10 Atherosclerotic heart disease of native coronary artery without angina pectoris; I50.9 Heart failure, unspecified; E11.22 Type 2 diabetes mellitus with diabetic chronic kidney disease; N18.9 Chronic kidney disease, unspecified; I13.0 Hypertensive heart and chronic kidney disease with heart failure and stage 1 through stage 4 chronic kidney disease, or unspecified chronic kidney disease; F32.9 Major depressive disorder, single episode, unspecified; Z86.73 Personal history of transient ischemic attack (TIA), and cerebral infarction without residual deficits; Z79.899 Other long term (current) drug therapy; Z79.4 Long term (current) use of insulin; Z79.82 Long term (current) use of aspirin; Z88.5 Allergy status to narcotic agent